=== PATIENT | female | born 1930 | race Caucasian/White ===

== ENCOUNTER 2016-11-01 14:18 | Emergency (ER) | payer OTHER ==
--- NOTE | 2016-11-01 16:14 | PROVIDER DOCUMENTATION ---
HPI-Musculoskeletal Pain/Inj - GENERAL Source: patient - HX OF PRESENT ILLNESS-MUSKULOSKELTAL Quality of Pain: reports: aching Severity in ED: mild Onset/Duration: this morning Timing: still present Modifying Factors: improves with: nothing Any recent injury?: No Locality of Occurance: Home Similar Symptoms Previously?: Yes Recently seen or treated by another doctor?: No - BACK & NECK PAIN/INJURY Back/Neck Pain Location: reports: lumbar spine Back/Neck Pain Radiation: reports: Other (R hip). denies: headache, shoulders, arm(s), Buttocks, Upper Legs, Lower Legs, Feet Context / Method of Injury: reports: unknown Associated Symptoms: reports: lower back pain, weakness in legs/feet (R hip). denies: loss of bladder control, loss of bowel control, fever, muscle spasms, numbness in legs/feet, numbness in upper ext, sensory/motor loss, tingling in legs/feet, tingling in upper ext, weakness in upper ext History of Chronic Neck or Back Pain?: No - HIP/PELVIS PAIN/INJURY Hip Pain Location: reports: hip (R) Pain Radiation: reports: no radiation Context / Method of Injury: reports: unknown Associated Symptoms: reports: lower back pain, weakness in legs/feet (R hip). denies: loss of bladder control, loss of bowel control, muscle spasms, numbness in legs/feet, sensory/motor loss, tingling in legs/feet - LOWER EXTREMITY PAIN/INJURY Lower Extremities Pain: hip: right (pain ) Context / Method of Injury: reports: unknown Associated Symptoms: reports: lower back pain, weakness in legs/feet (R hip). denies: loss of bladder control, loss of bowel control, muscle spasms, numbness in legs/feet, sensory/motor loss, tingling in legs/feet <Elise Moreno - Last Filed: 11/01/16 17:43> <Dominick Rasmussen - Last Filed: 11/01/16 19:41> <Dhaval Roberts - Last Filed: 11/01/16 19:45> - GENERAL Chief Complaint: Generalized Pain Stated Complaint: FALL, RIB PAIN Time Seen by Provider: 11/01/16 15:46 - HX OF PRESENT ILLNESS-MUSKULOSKELTAL Nature of Presenting Problem: Pt is 86 y/o F presents to the ED with R hip and back pain. Pt states she sat down at the kitchen table this am and could not get up. Pt denies falling. Pt denies CP. (Elise Moreon) Review of Systems - Adult - REVIEW OF SYSTEMS - ADULT Constitutional: reports: no symptoms reported Eyes: reports: no symptoms reported Ears, Nose, Mouth & Throat: reports: no symptoms reported Cardiovascular: reports: no symptoms reported Respiratory: reports: no symptoms reported Gastrointestinal: reports: no symptoms reported Genitourinary: reports: no symptoms reported Musculoskeletal: reports: back pain, other (R hip pain). denies: bone pain, joint pain, neck pain Integumentary: reports: no symptoms reported Neurological: reports: no symptoms reported Psychiatric: reports: no symptoms reported Endocrine: reports: no symptoms reported Hematologic/Lymphatic: reports: no symptoms reported Allergic/Immunologic: reports: no symptoms reported All Other Systems: Reviewed and Negative <Elise Moreno - Last Filed: 11/01/16 17:43> Past History - Adult - PAST MEDICAL HISTORY-ADULT Review of Records: reports: Nursing Assessment Review, Medications Reviewed, Social history reviewed & non-contributory. Major Childhood Illnesses: reports: denies history Cardiovascular: reports: HTN Respiratory: reports: denies history Gastrointestinal: reports: denies history Obstetrical/Gynecological: reports: denies history Genitourinary: reports: denies history Musculoskeletal: reports: denies history Neurological: reports: denies history Endocrine/Immune: reports: RA, thyroid disorder Other Conditions: reports: denies history - PRIOR SURGERIES/PROCEDURES Surgical/Procedure History: reports: hysterectomy, orthopedic (extremity) (R knee ), joint replacement (L hip ) - IMMUNIZATION STATUS Childhood Immunizations: See Nurse Assessment Flu Vaccine: See Nurse Assessment - FAMILY HISTORY Family History: reviewed, not pertinent - SOCIAL HISTORY Smoking: denies Substance Use: denies Living Situation: family <Elise Moreno - Last Filed: 11/01/16 17:43> Physical Exam-Injury Related - Physical Exam-Injury Related Initial Vital Signs Reviewed: Yes General Appearance: appears well, alert, no apparent distress Eyes: PERRL/EOMI, pink conjunctivae, fundi clear, no AV nicking Head, Ears, Nose, Mouth & Throat: normocephalic/atraumatic, moist mucous membranes, normal ENT inspection, TMs normal, pharynx normal Neck: non-tender, full range of motion, supple, normal inspection Respiratory: chest non-tender, lungs clear, normal breath sounds, no pleuratic chest pain, no respiratory distress, no accessory muscle use Cardiovascular: normal peripheral pulses, regular rate, rhythm, no edema, no gallop, no JVD, no murmur Abdominal Exam: normal bowel sounds, non tender, soft, no organomegaly, no pulsatile mass Lymphatic: no adenopathy Back Exam: normal inspection, no CVA tenderness, no vertebral tenderness Extremity: no pedal edema, no calf tenderness, normal capillary refill, tenderness (R hip) Integumentary: normal color, warm/dry Neurologic: grossly normal Psych/Mental Status: normal mood/affect, oriented x 3 <Elise Moreno - Last Filed: 11/01/16 17:43> Progress - CHANGE OF SHIFT REPORT (ED Provider) Report Given and Care Transferred to:: Dr. Roberts Time of Transfer: 17:50 Items Pending: Labs, XRAY Results, Other (EKG) <Eilse Moreno - Last Filed: 11/01/16 17:43> - REASSESSMENT Reassessment #1 Time Reassessed: 19:41 Status: improving (Pt reports that she is feeling better, but still has R hip and L shoulder pain. Dr. Roberts discussed results of pt's X-rays and POC for follow up. Pt and son verbaly acknowledged) - EKG 1 Time of EKG reading by physician:: 17:58 EKG Read and Signed by:: Maximo Moraels EKG Interpretation (*Must complete 3 of following elements*): Abnormal (LBBB) Rate: 59 Rhythm: Sinus bradycardia - XRAY 1 XRAY: Left XRAY Study: Shoulder Impression: See EMR Report XRAY Interpretation: Arthritis, no fx - CHANGE OF SHIFT REPORT (ED Provider) Report Given and Care Transferred to:: Dr. Roberts Time of Transfer: 18:17 Items Pending: Labs, XRAY Results, Other (EKG) <Dominick Rasmussen - Last Filed: 11/01/16 19:41> <Dhaval Roberts - Last Filed: 11/01/16 19:45> - PLAN OF CARE/RESULTS Progress/Plan/Lab Results: Vital Signs - 24 hr 11/01/16 14:24 Temperature 97.5 F L Pulse Rate 71 Respiratory 15 Rate Blood Pressure 124/55 O2 Sat by Pulse 98 Oximetry (Elise Moreno) Vital Signs - 24 hr 11/01/16 11/01/16 14:24 17:03 Temperature 97.5 F L Pulse Rate 71 63 Respiratory 15 Rate Blood Pressure 124/55 145/72 O2 Sat by Pulse 98 94 L Oximetry Orders Category Date Time Status Cardiac Monitoring DIRECTED Care 11/01/16 17:15 Active Finger Stick Blood Sugar (ED) DIRECTED Care 11/01/16 17:15 Active Saline Loc NOW Care 11/01/16 17:15 Active CHEST-PORTABLE [RAD] Stat Exams 11/01/16 17:15 Taken SHOULDER-LEFT [RAD] Routine Exams 11/01/16 18:33 Taken XRAY PELVIS W/HIP 2-3VW RT [RAD] Stat Exams 11/01/16 18:14 Taken CBC WITH ELECTRONIC DIFF [HEME] Stat Lab 11/01/16 17:27 Completed CK PROFILE [SP CHEM] Stat Lab 11/01/16 17:27 Completed COMPREHENSIVE METABOLIC PANEL [CHEM] Stat Lab 11/01/16 17:27 Completed D-DIMER [CHEM] Stat Lab 11/01/16 17:27 Completed MAGNESIUM [CHEM] Stat Lab 11/01/16 17:27 Completed PRO B-NATRIURETIC PEPTIDE Stat Lab 11/01/16 17:27 Completed PROTIME WITH INR [COAG] Stat Lab 11/01/16 17:27 Completed PTT [COAG] Stat Lab 11/01/16 17:27 Completed TROPONIN T Stat Lab 11/01/16 17:27 Completed UA NIMS W/REFLEX CULT [URINALYSIS] Stat Lab 11/01/16 17:15 Uncollected 0.9% Sodium Chloride Inj [Ns] 1,000 ml Med 11/01/16 17:15 Active IV 250 mls/hr EKG [EKG] Stat Ther 11/01/16 17:15 Ordered Laboratory Tests 11/01/16 11/01/16 11/01/16 17:27 17:27 17:27 WBC 6.30 RBC 4.46 Hgb 13.8 Hct 41.2 MCV 92.4 MCH 30.9 MCHC 33.5 RDW Std Deviation 14.3 Plt Count 170 MPV 10.2 Immature Gran % (Auto) 0.3 Neut % (Auto) 69.7 Lymph % (Auto) 19.0 L [place] % (Auto) 10.8 H Eos % (Auto) 0.0 Baso % (Auto) 0.2 Immature Gran # (Auto) 0.02 Neut # (Auto) 4.39 Lymph # (Auto) 1.20 [place] # (Auto) 0.68 H Eos # (Auto) 0.00 Baso # (Auto) 0.01 PT INR PTT (Actin FS) D-Dimer 0.39 Sodium 134 L Potassium 3.8 Chloride 96 L Carbon Dioxide 27 Anion Gap 11 BUN 16 Creatinine 0.5 Estimated GFR/1.73 m2 > 60 BUN/Creatinine Ratio 32 Glucose 84 Calculated Osmolality 269 Calcium 8.7 L Magnesium 2.1 Total Bilirubin 0.62 AST 12 ALT 15 Alkaline Phosphatase 64 Creatine Kinase 41 Troponin T Fyw-W-Rwwozrignlv Pept Total Protein 6.9 Albumin 4.2 Globulin 2.7 Albumin/Globulin Ratio 1.6 11/01/16 11/01/16 11/01/16 17:27 17:27 17:27 WBC RBC Hgb Hct MCV MCH MCHC RDW Std Deviation Plt Count MPV Immature Gran % (Auto) Neut % (Auto) Lymph % (Auto) [place] % (Auto) Eos % (Auto) Baso % (Auto) Immature Gran # (Auto) Neut # (Auto) Lymph # (Auto) [place] # (Auto) Eos # (Auto) Baso # (Auto) PT 11.4 INR 1.07 PTT (Actin FS) 27.3 D-Dimer Sodium Potassium Chloride Carbon Dioxide Anion Gap BUN Creatinine Estimated GFR/1.73 m2 BUN/Creatinine Ratio Glucose Calculated Osmolality Calcium Magnesium Total Bilirubin AST ALT Alkaline Phosphatase Creatine Kinase Troponin T < 0.010 Wgq-[id number]-Syrxzqlxkjq Pept 108 Total Protein Albumin Globulin Albumin/Globulin Ratio (Dominick Rasmussen) Departure <Elise Moreno - Last Filed: 11/01/16 17:43> - Departure Time of Disposition Order: 19:42 Certified Medical Emergency: Emergent <Dominick Rasmussen - Last Filed: 11/01/16 19:41> - Departure Time of Disposition Order: 19:44 Certified Medical Emergency: Emergent <Dhaval Roberts - Last Filed: 11/01/16 19:45> - Departure DIAGNOSIS: Hip pain, right, Shoulder pain, left Disposition: HOME 01 Condition: Stable Additional Instructions: ED Follow Up Instructions: You have been treated by a care provider in the Emergency Department. These instructions are being provided to you so you can have an understanding of how to care for yourself upon discharge. Upon discharge from the Emergency Department, you are responsible for making arrangements for follow-up care by a physician of your choice. Take all prescribed medications as directed. Return to the Emergency Department immediately for any new or worsening symptoms. You may call the Physician Referral phone number at [phone] to obtain a list of Physicians who are taking new patients. Prescriptions: Methylprednisolone [Medrol Dosepak] 4 mg PO DIRECTED #1 package Tramadol [Ultram] 50 mg PO TID #60 tablet Referrals: Phillip Drake MD [Primary Care Provider] - Attestation - Scribe Verification/Attestation Scribe:: Elise Moreno Acting as Scribe for:: Maximo Morales Scribe documention review:: This chart was documented by a scribe and accurately reflects the service the provider performed and the decisions made by the provider. - Scribe Verification/Attestation #2 Shift Change Time: 17:50 Scribe Name: Dominick Rasmussen Acting as Scribe for:: Dhaval Roberts <Elise Moreno - Last Filed: 11/01/16 17:43> - Scribe Verification/Attestation Scribe:: Dominick Rasmussen Acting as Scribe for:: Dhaval Roberts Scribe documention review:: This chart was documented by a scribe and accurately reflects the service the provider performed and the decisions made by the provider. <Dominick Rasmussen - Last Filed: 11/01/16 19:41> Physician Attestation
[2016-11-01] MEDS ORDERED: NS 1,000 ML IV ONE (17:15)
[2016-11-01 17:44] LABS: MANUAL DIFF NEEDED? NO
[2016-11-01 17:48] LABS: BASO% 0.2 % (0.0-0.8); HEMATOCRIT 41.2 % (37.0-47.0); HEMOGLOBIN 13.8 g/dL (12.0-16.0); IMM GRAN# 0.02 X1000 (0.0-0.04); IMM GRAN% 0.3 % (0.0-0.5); MCH 30.9 PG (27-31); MCHC 33.5 g/dL (33-37); MCV 92.4 FL (81-99); MONO# 0.68 X1000 (0.11-0.59); MONO% 10.8 % (1.7-9.3); MPV 10.2 FL (7.4-10.4); NEUT% 69.7 % (42.2-75.2); PLT 170 X1000 (130-400); RBC 4.46 XMIL (4.2-5.4)
[2016-11-01 17:54] LABS: INR 1.07; PROTIME 11.4 Seconds (9.2-11.7); PTT 27.3 Seconds (22.0-36.0)
[2016-11-01 18:02] LABS: AGAP 11; ALBUMIN 4.2 g/dL (3.5-5.0); ALKALINE PHOSPHATASE 64 U/L (32-104); BUN 16 mg/dL (8-22); CALCIUM 8.7 mg/dL (8.8-10.2); CHLORIDE 96 mmol/L (98-107); CK PROFILE 41 U/L (24-173); COSMO 269; GOT 12 U/L (10-30); GPT 15 U/L (10-36); MAGNESIUM 2.1 mg/dL (1.5-2.7); POTASSIUM 3.8 mmol/L (3.5-5.1); SODIUM 134 mmol/L (136-145); TCO2 27 mmol/L (25-35); TOTAL BILIRUBIN 0.62 mg/dL (0.20-1.00); TOTAL PROTEIN 6.9 g/dL (6.3-8.3)
[2016-11-01] MEDS ORDERED: TORADOL IV ONE (19:45)
[2016-11-01] MEDS ORDERED: DECADRON IV ONE (19:45)
[2016-11-01] MEDS ORDERED: DECADRON IM ONE (19:59)
[2016-11-01] MEDS ORDERED: TORADOL IM ONE (20:00)
[2016-11-01 20:20] VITALS: BP 153/71
--- NOTE | 2016-11-01 20:59 | Diag Imaging Result Document ---
PROCEDURE NAME: CHEST-PORTABLE - 11/01/2016 SINGLE FRONTAL RADIOGRAPH OF THE CHEST: COMPARISON: None available. FINDINGS: The lungs are grossly clear. There is no definite pleural fluid collection. Cardiac silhouette and central vasculature probably within normal limits given magnification from AP technique. IMPRESSION: No definite acute pathology.
--- NOTE | 2016-11-01 21:12 | Diag Imaging Result Document ---
PROCEDURE NAME: SHOULDER-LEFT - 11/01/2016 PLAIN RADIOGRAPH OF THE LEFT SHOULDER, 3 VIEWS: COMPARISON: None available. 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 There is only minimal osteophyte formation at the undersurface of the acromion at the AC joint. There is no evidence of fracture, dislocation, or intrinsic osseous lesion, otherwise. IMPRESSION: Degenerative changes as described but no evidence of acute osseous abnormality.
--- NOTE | 2016-11-01 21:13 | Diag Imaging Result Document ---
PROCEDURE NAME: XRAY PELVIS W/HIP 2-3VW RT - 11/01/2016 PLAIN RADIOGRAPH OF THE PELVIS AND RIGHT HIP, 2 VIEWS: COMPARISON: None available. FINDINGS: There has been a prior left hip arthroplasty. The arthroplasty hardware is in the expected position. There are moderate degenerative changes involving the right hip with small osteophyte formation at the acetabular roof and the humeral head. There is no definite fracture, dislocation, or intrinsic osseous lesion, otherwise. IMPRESSION: Degenerative changes involving the right hip but no definite acute osseous abnormality.
--- NOTE | 2016-11-02 06:07 | EKG Report ---
Test Performed on : 11/01/2016 5:58:49 PM Test Reason : Chest Pain Blood Pressure : / mmHG Vent. Rate : 059 BPM Atrial Rate : 059 BPM P-R Int : 168 ms QRS Dur : 128 ms QT Int : 458 ms P-R-T Axes : 013 -16 070 degrees QTc Int : 453 ms Sinus bradycardia. Left bundle branch block Abnormal ECG When compared with ECG of 21-APR-2014 16:26, Left bundle branch block is now present Borderline criteria for Anterior infarct are no longer present Unconfirmed Result
== END 2016-11-01 20:19 | disposition home or self-care (01) ==
LOC: EDBD → ED 14:18
DX: M25.551 Pain in right hip (principal); M25.512 Pain in left shoulder; R94.31 Abnormal electrocardiogram [ECG] [EKG]; M54.5 Low back pain; M62.81 Muscle weakness (generalized); I10 Essential (primary) hypertension; M06.9 Rheumatoid arthritis, unspecified; Z79.899 Other long term (current) drug therapy; Z96.642 Presence of left artificial hip joint
CPT/HCPCS: 71010; 80053; 82550; 83735; 83880; 84484; 85025; 85379; 85610; 85730; 93005; J1885; J7030